=== PATIENT | female | born 1975 | race Caucasian/White ===

== ENCOUNTER 2018-04-02 11:04 | Emergency (ER) | payer OTHER ==
--- NOTE | 2018-04-02 11:05 | EDPHY ---
H & P Time Seen by Provider: 04/02/18 11:05 Constitutional: Initial Vital Signs Temperature (C) 36.6 C 04/02/18 11:13 Heart Rate 66 04/02/18 11:13 Respiratory Rate 16 04/02/18 11:13 Blood Pressure 118/84 H 04/02/18 11:13 O2 Sat (%) 94 04/02/18 11:13 O2 Delivery Mode [Procedural Non-Rebreather Mask 3rd] O2 Delivery Mode [Procedural Non-Rebreather Mask 1st] O2 Delivery Mode [.Immediate Non-Rebreather Mask Pre-Procedure] O2 Delivery Mode Room Air O2 (L/minute) [Procedural 3rd] 15 O2 (L/minute) [Procedural 1st] 15 O2 (L/minute) [.Immediate Pre- 15 Procedure] Allergies/Adverse Reactions: No Known Allergies Allergy (Unverified 04/02/18 11:12) Home Medications: Medication Instructions Recorded NK [No Known Home Meds] 04/02/18 Medical Decision Making ED Course/Re-evaluation: CHIEF COMPLAINT: Elbow injury, knee pain, fall while skiing HISTORY OF PRESENT ILLNESS: The patient is a 42 y/o female complaining of a right elbow injury and right knee pain after falling while skiing. She was skiing at [employer] today when her daughter cut in front of her, causing her to fall and roll twice onto her right side. Her right elbow immediately began to hurt. During the fall, she heard her right knee make a popping sound causing pain. She is able to move her knee but moving or jostling her elbow causes intense pain. She is able to wiggle her fingers on her right hand. She denies any other associated symptoms. REVIEW OF SYSTEMS: A comprehensive 10 system review of systems is otherwise negative aside from elements mentioned in the history of present illness and medical decision making. PHYSICAL EXAM: HR, BP, O2 Sat, RR. Temp noted General Appearance: Alert, well hydrated, appropriate, and non-toxic appearing. Head: Atraumatic without scalp tenderness or obvious injury Eyes: Pupils equal, round, reactive to light and accommodation, EOMI, no trauma , no injection. Ears: Clear bilaterally, no perforation, normal landmarks Nose: Atraumatic, no rhinorrhea, clear. Throat: There is no erythema or exudates, no lesions, normal tonsils, mucus membranes moist. Neck: Supple, 2+ carotid upstroke, nontender, no lymphadenopathy. Respiratory: No retractions, no distress, no wheezes, and no accessory muscle use. Lungs are clear to auscultation bilaterally. Cardiovascular: Regular rate and rhythm, no murmurs, rubs, or gallops. Bilateral carotid, radial, dorsalis pedis, and posterior tibial pulses intact. Good capillary refill all extremities. Gastrointestinal: Abdomen is soft, nontender, non-distended, no masses, no rebound, no guarding, no peritoneal signs. Musculoskeletal: Right elbow is swollen and tender. Range of motion not tested due to pain. Fingers of right hand are able to be moved. Right knee painful but with active range of motion intact. Brace in place on the left knee Neurological: Alert, appropriate, and interactive. Skin: No rashes, good turgor, no nodules on palpation. Past medical history: Denies Past surgical history: ACL repair on the left Family history: Non-contributory Social history: Daughters and at bedside, , skier, lives in [place] DIAGNOSTICS/PROCEDURES/CRITICAL CARE TIME: Study: Elbow x-ray Indication: Trauma, possible elbow dislocation or fracture Results: After viewing the images myself on the PACS system. My interpretation of the images is: posterior dislocation of the right elbow without clear fracture. The radiologist interpretation is pending at the time of this dictation. Procedure: Procedural sedation Indication: Joint Relocation A pre-sedation evaluation was completed on the patient at 11:20 AM. The patient has an ASA class 1 airway and modified Mallampati class 1 airway. Patient is an appropriate candidate for procedural sedation. The risks, benefits, alternatives of sedation were discussed with the patient. Consent was obtained. The patient was pre-oxygenated with 100% O2 on a [id number] and moved to the procedure room where airway rescue equipment is available. A time out was observed. The patient was sedated with 70 mg of propofol and 40 mg of ketamine. The patient was monitored with continuous pulse oximetry, potline monitor, and end tidal CO2. There were no complications and no hypoxemia. The patient tolerated the procedure well and returned to baseline. I remained at the bedside for the sedation. The total time I spent in the procedural sedation was minutes . Procedure: Dislocation reduction Indication: Dislocation of the right elbow Risks, benefits, alternatives discussed with the patient. Consent was obtained. The elbow was reduced. The patient has a normal neurovascular exam distal to the injury post reduction. Patient tolerated the procedure well and is significantly more comfortable. Post reduction x-ray demonstrates reduction of the joint to the anatomic position. The procedure was performed by myself. Study: Repeat elbow x-ray Indication: Reduced dislocation Results: After viewing the images myself on the PACS system. My interpretation of the images is: proper anatomic location of elbow joint, no indication of hairline fractures. The radiologist interpretation is pending at the time of this dictation. Study: Knee x-ray Indication: Pain, fall Results: After viewing the images myself on the PACS system. My interpretation of the images is: normal for age. The radiologist interpretation is pending at the time of this dictation. DIFFERENTIAL DIAGNOSIS: The differential diagnosis for this patient's injuries included but was not limited to fractures, elbow dislocation, ligamentous injuries, and muscular injuries. MEDICAL DECISION MAKING: The patient arrived via EMS for evaluation of possible elbow and knee injuries after a fall while skiing. She fell and rolled onto her right side twice, immediately injuring the right elbow and causing her right knee to pop. On exam, her right elbow was swollen and tender. X-ray images indicated a posterior dislocation of the right elbow. She was sedated and the elbow dislocation reduction was performed. Repeat x-ray indicated proper anatomic position of the joint. While placing in a sling, the elbow dislocated again, suggesting possible ligamentous injury. I reduced her elbow using ketamine for greater muscle relaxation. The elbow was splinted in position after second dislocation reduction. 12:00 PM - The patient's knee x-ray and road test were good. She is safe to follow up with her orthopedic surgeon this week. She agrees to the course of action. - Data Points Medications Given: Discontinued Medications Ketamine HCl (Ketamine) 40 mg IVP EDNOW ONE Stop: 04/02/18 11:49 Last Admin: 04/02/18 11:28 Dose: 40 mg Propofol (Diprivan) 10 mg IVP EDNOW ONE Stop: 04/02/18 11:22 Last Admin: 04/02/18 11:21 Dose: 10 mg Propofol (Diprivan) 60 mg IVP EDNOW ONE Stop: 04/02/18 11:21 Last Admin: 04/02/18 11:20 Dose: 60 mg Propofol (Diprivan) 20 mg IVP EDNOW ONE Stop: 04/02/18 11:29 Last Admin: 04/02/18 11:28 Dose: 20 mg Departure - Departure Disposition: Home, Routine, Self-Care Clinical Impression: Elbow dislocation Qualifiers: Encounter type: initial encounter Laterality: right Qualified Code(s): S53.104A - Unspecified dislocation of right ulnohumeral joint, initial encounter Knee pain Qualifiers: Chronicity: acute Laterality: right Qualified Code(s): M25.561 - Pain in right knee Condition: Good Instructions: Elbow Dislocation (ED), Knee Pain (ED) Additional Instructions: 1. Please follow up with your orthopedic surgeon this week regarding your injuries. 2. Keep your right arm immobilized and do not use it. 3. Take Independence as directed as needed for pain. Take Zofran as directed as needed for nausea. 4. Return to the emergency department for any worsening of condition included numbness in the hand and discoloration of the hand. Referrals: Patient,NotPresent [Primary Care Provider] - As per Instructions Anthony Emery MD [Medical Doctor] - As per Instructions Report Scribed for: Josr Turner Report Scribed by: Kanika Veronica Date of Report: 04/02/18 Time of Report: 12:07
[2018-04-02] MEDS ORDERED: PROPOFOL 200 MG/20 ML VIAL ONE (11:10)
[2018-04-02] MEDS ORDERED: PROPOFOL 200 MG/20 ML VIAL IVP ONE ×3 (11:20→11:28)
[2018-04-02] MEDS ORDERED: KETAMINE 200 MG/20 ML VIAL ONE (11:26)
[2018-04-02] MEDS ORDERED: KETAMINE 500 MG/10 ML VIAL IM ONE (11:28)
[2018-04-02] MEDS ORDERED: KETAMINE 500 MG/10 ML VIAL IVP ONE (11:48)
[2018-04-02 12:10] VITALS: BP 113/83
== END 2018-04-02 12:24 | disposition home or self-care (01) ==
PROC: 0RSLXZZ Reposition Right Elbow Joint, External Approach (ICD-10-PCS; principal; 2018-04-02)
DX: S53.104A Unspecified dislocation of right ulnohumeral joint, initial encounter (principal); M25.561 Pain in right knee; V00.321A Fall from snow-skis, initial encounter; Y92.838 Other recreation area as the place of occurrence of the external cause; Y93.23 Activity, snow (alpine) (downhill) skiing, snowboarding, sledding, tobogganing and snow tubing; Y99.9 Unspecified external cause status
CPT/HCPCS: A4565; J2704